=== PATIENT | male | born 1975 | race Caucasian/White ===

== ENCOUNTER 2019-09-04 22:22 | Observation (INO) | payer OTHER ==
[2019-09-04] MEDS ORDERED: SODIUM CHLORIDE 0.9% 500 ML 500 ML IV STA (23:43)
[2019-09-04] MEDS ORDERED: SODIUM CHLORIDE 0.9% 1,000 ML IV STA ×2 (23:43)
[2019-09-04] MEDS ORDERED: ONDANSETRON 4 MG/2 ML VIAL IVP STA (23:43)
[2019-09-04] MEDS ORDERED: KETOROLAC 30 MG/ML 1 ML VIAL IVP STA (23:43)
[2019-09-04] MEDS ORDERED: MORPHINE SULFATE 4 MG/ML SYRINGE IV STA (23:43)
[2019-09-04] MEDS ORDERED: ONDANSETRON 4 MG/2 ML VIAL IVP PRN (23:45)
[2019-09-04] MEDS ORDERED: MORPHINE SULFATE 4 MG/ML SYRINGE IVP PRN (23:45)
--- NOTE | 2019-09-04 23:45 | ED ---
Abdominal Pain HPI - General Chief Complaint: Abdominal Pain Stated Complaint: Abd Pain Time Seen by Provider: 09/04/19 22:51 Source: patient, RN notes reviewed, old records reviewed Mode of arrival: ambulatory Limitations: no limitations - History of Present Illness Initial Comments: This is a 44-year-old male who is accepted in transfer from an outpatient facility for pain control diagnosis of kidney stones. Patient's pain remains out of control nausea no vomiting. Denying any fevers or dysuria history of kidney stones and this feels her prior kidney stone MD Complaint: abdominal pain, flank pain -: days(s) Location: LLQ, L flank Radiation: suprapubic, L flank Severity: severe Severity scale (1-10): 8 Quality: aching Improves With: nothing Worsens With: nothing Associated Symptoms: nausea - Related Data Home Medications Medication Instructions Recorded Confirmed Omeprazole Magnesium [PriLOSEC OTC] 20 mg PO QAM 09/05/19 09/06/19 Previous Rx's Medication Instructions Recorded HYDROcodone/APAP 10-325MG [[place] 1 tab PO Q6HR PRN 3 Days #12 tab 09/05/19 10-325] Tamsulosin [Flomax] 0.4 mg PO DAILY #30 cap 09/05/19 Allergies Allergy/AdvReac Type Severity Reaction Status Date / Time No Known Allergies Allergy Verified 09/05/19 07:31 Review of Systems ROS Statement: Those systems with pertinent positive or pertinent negative responses have been documented in the HPI. ROS Other: All systems not noted in ROS Statement are negative. Past Medical History Additional Past Medical History / Comment(s): kidney stones History of Any Multi-Drug Resistant Organisms: None Reported Past Surgical History: Orthopedic Surgery Additional Past Surgical History / Comment(s): neck surgery Past Psychological History: No Psychological Hx Reported Smoking Status: Current every day smoker Past Alcohol Use History: None Reported Past Drug Use History: Marijuana General Exam Limitations: no limitations General appearance: alert, in no apparent distress Head exam: Present: atraumatic, normocephalic, normal inspection Eye exam: Present: normal appearance, PERRL, EOMI. Absent: scleral icterus, conjunctival injection, periorbital swelling ENT exam: Present: normal exam, mucous membranes moist Neck exam: Present: normal inspection. Absent: tenderness, meningismus, lymphadenopathy Respiratory exam: Present: normal lung sounds bilaterally. Absent: respiratory distress, wheezes, rales, rhonchi, stridor Cardiovascular Exam: Present: regular rate, normal rhythm, normal heart sounds. Absent: systolic murmur, diastolic murmur, rubs, gallop, clicks GI/Abdominal exam: Present: soft, normal bowel sounds. Absent: distended, tenderness, guarding, rebound, rigid Extremities exam: Present: normal inspection, full ROM, normal capillary refill. Absent: tenderness, pedal edema, joint swelling, calf tenderness Back exam: Present: normal inspection Neurological exam: Present: alert, oriented X3, CN II-XII intact Psychiatric exam: Present: normal affect, normal mood Skin exam: Present: warm, dry, intact, normal color. Absent: rash Course Vital Signs 09/04/19 09/05/19 09/05/19 22:47 06:00 07:53 Temperature 98.6 F 98.5 F Pulse Rate 68 77 Pulse Rate [ 61 Right] Respiratory 20 16 16 Rate Blood Pressure 131/81 104/65 Blood Pressure 105/87 [Right Arm] O2 Sat by Pulse 98 98 97 Oximetry 09/05/19 08:00 Temperature Pulse Rate Pulse Rate [ Right] Respiratory 18 Rate Blood Pressure Blood Pressure [Right Arm] O2 Sat by Pulse Oximetry - Reevaluation(s) Reevaluation #1: 09/04/19 23:44 Medical record is reviewed Reevaluation #2: 09/04/19 23:44 Patient's pain is adequately controlled - Consultations Consultation #1: Spoke with spoke with Dr. Taran herbert for admission Medical Decision Making - Medical Decision Making 44 male be admitted for evaluation regarding kidney stone intractable pain from kidney stones - Lab Data Result diagrams: 09/05/19 00:10 09/05/19 00:10 Disposition Clinical Impression: Abdominal pain, Intractable abdominal pain, Left ureteral stone, Hydronephrosis with renal and ureteral calculous obstruction, Ureteral calculi, Intractable pain Disposition: ADMITTED IP TO THIS [facility] Condition: Stable Is patient prescribed a controlled substance at d/c from ED?: No
[2019-09-05] MEDS ORDERED: HYDROmorphone 1 MG/ML 1 ML SYRINGE IVP STA (00:01)
[2019-09-05 00:43] LABS: Basophils % (A) 0 %; Eosinophils # (A) 0.1 k/uL (0-0.7); Eosinophils % (A) 0 %; HGB 14.5 gm/dL (13.0-17.5); Lymphocytes # (A) 1.2 k/uL (1.0-4.8); Lymphocytes % (A) 8 %; MCH 30.3 pg (25.0-35.0); MCHC 32.9 g/dL (31.0-37.0); MCV 92.1 fL (80.0-100.0); Mean Platelet Volume 6.7; Monocytes # (A) 1.2 k/uL (0-1.0); Monocytes % (A) 8 %; Neutrophils # (A) 12.4 k/uL (1.3-7.7); Neutrophils % (A) 83 %; Platelet Count 266 k/uL (150-450); RBC 4.78 m/uL (4.30-5.90); RDW 11.7 % (11.5-15.5)
[2019-09-05 00:44] LABS: ALT 12 U/L (4-49); AST 20 U/L (17-59); African American GFR (CKD) 84 (>60 ml/min/1.73 sqM); Albumin 3.7 g/dL (3.5-5.0); Alkaline Phosphatase 73 U/L (38-126); Amylase <30 U/L (30-110); Anion Gap 8 mmol/L; Blood Urea Nitrogen 18 mg/dL (9-20); Calcium 8.5 mg/dL (8.4-10.2); Carbon Dioxide 24 mmol/L (22-30); Chloride 103 mmol/L (98-107); Glucose 117 mg/dL (74-99); Non-African American GFR(CKD) 72 (>60 ml/min/1.73 sqM); Potassium 4.7 mmol/L (3.5-5.1); Sodium 135 mmol/L (137-145); Total Bilirubin 0.7 mg/dL (0.2-1.3)
[2019-09-05 01:47] LABS: Appearance,Urine Clear (Clear); Color,Urine Yellow; Glucose,Urine (UA) Negative (Negative); Protein,Urine Negative (Negative)
[2019-09-05 01:48] LABS: Bilirubin,Urine Negative (Negative); Blood,Urine Moderate (Negative); Ketones,Urine Negative (Negative); Leukocyte Esterase,Urine Negative (Negative); Nitrite,Urine Negative (Negative); Urobilinogen,Urine <2.0 mg/dL (<2.0)
--- NOTE | 2019-09-05 01:49 | P.HPIM ---
History of Present Illness H&P Date: 09/05/19 Chief Complaint: Left flank pain nausea vomiting The patient is a 44-year-old male with a past medical history of GERD and recurrent kidney stones who presents to the ER after being transferred here from [place] where he had early presented today via private vehicle with chief complaint of severe episodic intermittent sharp left flank pain with radiation into his left upper abdomen and groin that began late Monday evening. Patient reports associated episodes of nausea and nonbloody bilious emesis, patient has had diminished appetite and inability to keep solids down, he does report being able to keep fluids down, he reports subjective fevers chills or night sweats. He denies any chest pain, denies shortness of breath. The patient reports P receiving seen by Dr. Dela Cruz in [place] and has had surgical removal of his kidney stones previously. Review of records indicates that workup in [place] included a CT abdomen and pelvis that showed a 2-3 mm renal calculi and left ureteral vesicular junction with mild upstream hydronephrosis with urothelial thickening and enhancement with extensive surrounding perinephric periureteral edema and soft tissue stranding concerning for superimposed infarction. On CBC abnormal labs included a white count of 16.8 platelets of 360 with a left shift on his CMP was noted to have a creatinine of 1.4 and a total bili of 1.1. The patient was given boluses of normal saline, started on supportive therapy with Dilaudid and Zofran and transferred here to the [facility] for urology consultation. Review of Systems Pertinent positives per HPI all other review of systems otherwise negative Past Medical History Additional Past Medical History / Comment(s): kidney stones History of Any Multi-Drug Resistant Organisms: None Reported Past Surgical History: Orthopedic Surgery Additional Past Surgical History / Comment(s): neck surgery Past Psychological History: No Psychological Hx Reported Smoking Status: Current every day smoker Past Alcohol Use History: None Reported Past Drug Use History: Marijuana Medications and Allergies Allergies Allergy/AdvReac Type Severity Reaction Status Date / Time No Known Allergies Allergy Verified 09/04/19 22:51 Physical Exam Vitals: Vital Signs Temp Pulse Resp BP Pulse Ox 09/04/19 22:47 98.6 F 68 20 131/81 98 Intake and Output 09/04/19 09/04/19 09/05/19 14:59 22:59 06:59 Other: Weight 83.461 kg Constitutional: No acute distress, conversant, pleasant Eyes: Anicteric sclerae, moist conjunctiva, no lid-lag, PERRLA ENMT: NC/AT,Oropharynx clear, no erythema, exudates Neck:Supple, FROM, no masses, or JVD, No carotid bruits; No thyromegaly Lungs: Clear to auscultation, Clear to percussion, Normal respiratory effort, no accessory muscle use Cardiovascular: Heart regular in rate and rhythm, No murmurs, gallops, or rubs no peripheral edema Abdominal: Soft Nontender, nom distended, no guarding, no rebound or rigidity, Normoactive bowel sound, L CVA tenderness Skin: Normal temperature, tone, texture, turgor, No induration No subcutaneous nodules, No rash, lesions, No ulcers Extremities:No digital cyanosis No clubbing, Pedal pulses intact and symmetrica l Radial pulses intact and symmetrical Normal gait and station, No calf tenderness Psychiatric: Alert and oriented to person, place and time, Appropriate affect Intact judgement Neuro: Muscles Strength 5/5 in all 4 extremities, Sensation to light touch grossly present throughout, Cranial nerves II-XII grossly intact. No focal sensory deficits Results CBC & Chem 7: 09/05/19 00:10 09/05/19 00:10 Assessment and Plan Assessment: Sepsis Pyelonephritis Ureterolithiasis with hydronephrosis Acute kidney injury thrombocytosis GERD Intractable nausea and vomiting Plan: The patient is admitted anticipated greater than 2 midnight stay with sepsis to acute pyelonephritis complicated by a obstructing ureterovesicle stone with imaging evidence of pyelonephritis hydronephrosis and possible infarct. The patient is covered with empiric IV antibiotics with Rocephin, urine and blood cu ltures are ordered, continue rehydration with IV fluids, continue supportive therapy, antiemetics, IV narcotics. Lopressor consultation to urology and nephrology. Prophylaxis with SCDs heparin and PPI therapy. Continue to follow the patient's clinical course CODE STATUS: Full code Anticipated discharge home Discussed plan of care with: Patient and his Greater than 60 minutes was spent in the care of this complex patient
[2019-09-05 01:57] LABS: Mucus,Urine Rare /hpf; RBC,Urine 2 /hpf (0-5); WBC,Urine 1 /hpf (0-5)
--- NOTE | 2019-09-05 02:05 | XR ---
EXAMINATION TYPE: XR KUB DATE OF EXAM: 09/05/2019 COMPARISON: NONE HISTORY: Abdominal pain TECHNIQUE: 2 views upright FINDINGS: There is contrast in the dilated left upper collecting system down to the distal left urete r. There is no hydronephrosis on the right side. Urinary bladder is almost empty and is containing co ntrast. There is no sign of intestinal obstruction or pneumoperitoneum. Fecal pattern is normal. IMPRESSION: Obstruction of the left upper collecting system by possible small stone at the left urete ral vesicle junction. No change compared to CT scan yesterday.
[2019-09-05] MEDS: HYDROmorphone 1 MG/ML 1 ML SYRINGE IVP PRN ×2 (02:07→06:07)
[2019-09-05 07:54] VITALS: BP 105/87; PULSE 61; TEMP 98.5
[2019-09-05] MEDS ORDERED: HEPARIN SODIUM,PORCINE 5,000 UNIT/ML 1 ML VIAL SQ SCH (08:00)
[2019-09-05] MEDS ORDERED: TAMSULOSIN 0.4 MG CAP.ER.24H PO SCH (08:30)
--- NOTE | 2019-09-05 08:38 | P.GSCN ---
History of Present Illness Consult date: 09/05/19 Reason for Consult: Left hydronephrosis secondary to distal left ureteral calculus History of present illness: The patient is a 44-year-old male with a history of calcium urolithiasis who was transferred from the [facility] emergency room late last night for evaluation of severe left flank pain secondary to a distal left ureteral calculus. Patient says that his pain began on 09/07 and was located in the left lower quadrant. It was associated with nausea, vomiting and anorexia. His pain persisted and worsened to the point where he went to the [facility] emergency room yesterday for evaluation. He was noted to have a white blood count of 16,800. BUN/creatinine were 19/1.4. Urinalysis showed less than 2 white cells, 12-15 red cells and was negative for nitrite. Computed tomography scan of the abdomen and pelvis showed left hydroureteronephrosis secondary to what appeared to be a 2-3 mm calculus in the distal left ureter near the bladder. The patient continued to have severe pain and was transferred to this facility for further evaluation. He has remained afebrile. His white blood count at the time of arrival was 15,000. BU N/creatinine were 18/1.2. A KUB showed retained contrast in the left ureter down to what appeared to be a 2-3 mm calculus near the left side of the bladder. The patient said that he was in pain at the time of the KUB but shortly after that his pain resolved. He is had no pain since then. He no longer has any nausea. Unfortunately he has not been straining his urine. Patient says that he has had fibrocystic stones over the last 20 years. The only surgical intervention was ureteroscopy with lithotripsy for 2 left ureteral calculi in 03/2019. He says that he once passed a 5 mm calculus. He has no history of urine of tract infection. Review of Systems - Constitutional Reports anorexia, Denies chills, Denies fever - Cardiovascular Denies shortness of breath - Respiratory Denies cough, Denies wheezing - Gastrointestinal Reports as per HPI, Reports heartburn - Genitourinary Reports as per HPI Past Medical History Past Medical History: GERD/Reflux Additional Past Medical History / Comment(s): kidney stones History of Any Multi-Drug Resistant Organisms: None Reported Past Surgical History: Orthopedic Surgery Additional Past Surgical History / Comment(s): Cervical spine fusion, amputation of right index finger and surgery on left foot. EGD Past Psychological History: No Psychological Hx Reported Smoking Status: Current every day smoker Past Alcohol Use History: None Reported Past Drug Use History: Marijuana Medications and Allergies Home Medications Medication Instructions Recorded Confirmed Type Omeprazole Magnesium [PriLOSEC OTC] 20 mg PO QAM 09/05/19 09/05/19 History Allergies Allergy/AdvReac Type Severity Reaction Status Date / Time No Known Allergies Allergy Verified 09/05/19 07:31 Surgical - Exam Vital Signs Temp Pulse Resp BP Pulse Ox 98.6 F 68 20 131/81 98 09/04/19 22:47 09/04/19 22:47 09/04/19 22:47 09/04/19 22:47 09/04/19 22:47 - General well developed, well nourished, no distress - ENT no hearing loss - Neck no masses, no lymphadectomy - Respiratory normal respiratory effort - Abdomen Abdomen: soft, non tender Hernia: none - Genitourinary normal penis with no external lesions, testicles non-tender Results - Labs 09/05/19 00:10 09/05/19 00:10 Abnormal Lab Results - Last 24 Hours (Table) 09/05/19 09/05/19 09/05/19 Range/Units 00:10 00:10 00:13 WBC 15.0 H (3.8-10.6) k/uL Neutrophils # 12.4 H (1.3-7.7) k/uL Monocytes # 1.2 H (0-1.0) k/uL Sodium 135 L (137-145) mmol/L Glucose 117 H (74-99) mg/dL Total Protein 6.0 L (6.3-8.2) g/dL Amylase <30 L (30-110) U/L Urine Mucus Rare H (None) /hpf Diabetes panel 09/05/19 Range/Units 00:10 Sodium 135 L (137-145) mmol/L Potassium 4.7 (3.5-5.1) mmol/L Chloride 103 (98-107) mmol/L Carbon Dioxide 24 (22-30) mmol/L BUN 18 (9-20) mg/dL Creatinine 1.20 (0.66-1.25) mg/dL Glucose 117 H (74-99) mg/dL Calcium 8.5 (8.4-10.2) mg/dL AST 20 (17-59) U/L ALT 12 (4-49) U/L Alkaline Phosphatase 73 (38-126) U/L Total Protein 6.0 L (6.3-8.2) g/dL Albumin 3.7 (3.5-5.0) g/dL Calcium panel 09/05/19 Range/Units 00:10 Calcium 8.5 (8.4-10.2) mg/dL Albumin 3.7 (3.5-5.0) g/dL Pituitary panel 09/05/19 Range/Units 00:10 Sodium 135 L (137-145) mmol/L Potassium 4.7 (3.5-5.1) mmol/L Chloride 103 (98-107) mmol/L Carbon Dioxide 24 (22-30) mmol/L BUN 18 (9-20) mg/dL Creatinine 1.20 (0.66-1.25) mg/dL Glucose 117 H (74-99) mg/dL Calcium 8.5 (8.4-10.2) mg/dL Adrenal panel 09/05/19 Range/Units 00:10 Sodium 135 L (137-145) mmol/L Potassium 4.7 (3.5-5.1) mmol/L Chloride 103 (98-107) mmol/L Carbon Dioxide 24 (22-30) mmol/L BUN 18 (9-20) mg/dL Creatinine 1.20 (0.66-1.25) mg/dL Glucose 117 H (74-99) mg/dL Calcium 8.5 (8.4-10.2) mg/dL Total Bilirubin 0.7 (0.2-1.3) mg/dL AST 20 (17-59) U/L ALT 12 (4-49) U/L Alkaline Phosphatase 73 (38-126) U/L Total Protein 6.0 L (6.3-8.2) g/dL Albumin 3.7 (3.5-5.0) g/dL Assessment and Plan (1) Hydronephrosis with renal and ureteral calculous obstruction Narrative/Plan: I personally reviewed the patient's computed tomography scan which was performed in [place] as well as his KUB from earlier this morning. He appears to have had a 2-3 mm calculus in the left distal ureter with secondary hydronephrosis. This was most likely the source of his pain. He has no evidence of sepsis and his elevated white blood count was probably on the basis of the pain. He's had no pain at all for the last 7-8 hours and it is possible that he has passed the calculus into his bladder. Unfortunately he has not been straining his urine. If his pain does not return he could be discharged and followed up as an outpatient. At least at this time there is no need for any surgical intervention or antibiotics. Current Visit: Yes Status: Acute Code(s): N13.2 - HYDRONEPHROSIS WITH RENAL AND URETERAL CALCULOUS OBSTRUCTION SNOMED Code(s): 061995906
[2019-09-05] MEDS ORDERED: PANTOPRAZOLE 40 MG/10 ML VIAL IVP SCH (09:00)
[2019-09-05] MEDS ORDERED: DOCUSATE 100 MG CAP PO SCH (09:00)
--- NOTE | 2019-09-05 10:18 | P.DS ---
Providers Date of admission: 09/04/19 23:46 Expected date of discharge: 09/05/19 Attending physician: Celso Ling MD Consults: 09/05/19 00:40 Consult Physician Routine Consulting Provider: Jose Antonio Blue Consult Reason/Comments: Urolithiasis, hydronephrosis Do you want consulting provider notified?: Yes, Notify in am 09/05/19 00:44 Consult Physician Routine Consulting Provider: Chetan Jackson Consult Reason/Comments: SCOTT Do you want consulting provider notified?: Yes, Notify in am Primary care physician: [facility] Course: The patient is a 44-year-old male with a past medical history of GERD and recurrent kidney stones who presents to the ER after being transferred here from [place] where he had early presented today via private vehicle with chief complaint of severe episodic intermittent sharp left flank pain with radiation into his left upper abdomen and groin that began late Monday evening. Patient reports associated episodes of nausea and nonbloody bilious emesis, patient has had diminished appetite and inability to keep solids down, he does report being able to keep fluids down, he reports subjective fevers chills or night sweats. He denies any chest pain, denies shortness of breath. The patient reports P receiving seen by Dr. Dela Cruz in [place] and has had surgical removal of his kidney stones previously. Review of records indicates that workup in [place] included a CT abdomen and pelvis that showed a 2-3 mm renal calculi and left ureteral vesicular junction with mild upstream hydronephrosis with urothelial thickening and enhancement with extensive surrounding perinephric periureteral edema and soft tissue stranding concerning for superimposed infarction. On CBC abnormal labs included a white count of 16.8 platelets of 360 with a left shift on his CMP was noted to have a creatinine of 1.4 and a total bili of 1.1. The patient was given boluses of normal saline, started on supportive therapy with Dilaudid and Zofran and transferred here to the [facility] for urology consultation. Patient reported complete resolution of his pain overnight. He was initially admitted for sepsis with acute pyelonephritis complicated by an obstructing ureterovesical stone with hydronephrosis. Patient was started on Rocephin. Urine and blood cultures are obtained. He was hydrated with IV fluids. Urology was consulted and evaluated the patient. Urology recommended outpatient follow- up and to discontinue antibiotics as this was not likely infectious. Patient was seen and examined. No acute events overnight. Patient reports complete resolution of his pain. He denies any chest pain, shortness breath or palpitations. No abdominal pain. No fever or chills. Wanting to go home. General: [non toxic], [no distress], [appears at stated age] Derm: [warm], [dry] Abdominal: [soft], [ nontender to palpation], [no guarding], [no appreciable organomegaly] Psych: [Alert], [oriented], [appropriate affect] Ureterolithiasis with hydronephrosis Leukocytosis GERD Nausea and vomiting Urology has evaluated the patient and recommends that there is no evidence of sepsis and elevated white count is likely reactive from pain. His pain is completely resolved and urology has cleared the patient for discharge. We will discontinue antibiotics. His nausea and vomiting has resolved. Patient will be discharged with close follow-up with PCP within 3 days. He is to follow-up with urology within 1 week. 3 day supply of [place] prescribed on discharge. This complex discharge took about 35 minutes to complete. Pertinent Studies: KUB Patient Condition at Discharge: Stable Plan - Discharge Summary New Discharge Prescriptions: New HYDROcodone/APAP 10-325MG [[place] 10-325] 1 tab PO Q6HR PRN 3 Days #12 tab PRN Reason: Pain Continue Omeprazole Magnesium [PriLOSEC OTC] 20 mg PO QAM Discharge Medication List HYDROcodone/APAP 10-325MG [[place] 10-325] 1 tab PO Q6HR PRN 3 Days #12 tab 09/05/19 [Rx] Omeprazole Magnesium [PriLOSEC OTC] 20 mg PO QAM 09/05/19 [History] Follow up Appointment(s)/Referral(s): Francisco Lemons DO [Primary Care Provider] - 1-2 days Jame Clark MD [STAFF PHYSICIAN] - 1 Week Activity/Diet/Wound Care/Special Instructions: Diet: Regular Follow-up PCP within 3 days. Follow-up urology within 1 week. Take all medications as advised. Discharge Disposition: HOME SELF-CARE
[2019-09-05 11:00] VITALS: RESP 18
--- NOTE | 2019-09-05 21:57 | CONS ---
CONSULTATION DATE OF SERVICE: 09/05/2019 REASON FOR CONSULT: Nephrolithiasis. HISTORY OF PRESENT ILLNESS: The patient is a 44-year-old male with chronic history of kidney stones with recent increase in the recurrence of renal colic. The patient was admitted to the hospital with left flank pain. He initially presented to [facility] from where hew as transferred down to [facility]. He has been evaluated by Urology. The patient also was found to have left hydronephrosis. He denied having actually passed any kidney stones on this episode. UA did not show any evidence of infection, hematuria, or proteinuria. The patient will follow up with Urology as an outpatient. He denies having had any 24-hour urine checked for stone profile. PAST MEDICAL HISTORY: Nephrolithiasis, gastroesophageal reflux disease. PAST SURGICAL HISTORY: Previous urological surgery, cervical spine fusion, surgery on right index finger injury. SOCIAL HISTORY: Positive for smoking. No illicit drug abuse or alcohol abuse. HOME MEDICATIONS: Include omeprazole. ALLERGIES: NONE. PHYSICAL EXAMINATION: On examination, the patient is comfortable, awake, alert, and oriented x3, not in any acute distress. Blood pressure is 105/87, heart rate 61 per minute. The patient is afebrile. EXAMINATION OF THE HEART: S1 and S2. EXAMINATION OF THE LUNGS: Bilateral breath sounds are heard. ABDOMEN: Soft, nontender. Examination of lower extremities shows no evidence of edema. LEGAL RECRUITER exam is grossly intact. LABS: Show sodium 135, potassium 4.7, chloride 103, CO2 is 24, BUN 18, creatinine 1.2. UA shows no evidence of blood, protein, or cells. ASSESSMENT: Nephrolithiasis with left renal stone and left hydronephrosis. PLAN: To follow up as an outpatient with Urology. I have advised the patient that he should have a 24-hour urine for stone profile. He is also advised to maintain adequate hydration and avoid high sodium-containing foods. The patient should avoid any calcium supplements, but do not restrict calcium foods in diet. He does have a little bit of acute kidney injury and renal function will be repeated again as an outpatient. Thank you for this consultation. Will see the patient back for follow up as an outpatient. MMODL / IJN: [id number] /
--- NOTE | 2019-09-09 09:23 | CDI ---
Documentation Clarification Form Date: 09/09/19 From: Di Cordon Phone: If you have a question about this query, please contact Ya Reynaga Powder Mixer at [phone] between 8am and 5pm. Admit Date: 09/04/19 Discharge Date:09/05/19 Patient Name: Kota Pandya Visit Number: [id number] ATTENTION: The Clinical Documentation Specialists (CDI) and [facility] Coding Staff appreciate your assistance in clarifying documentation. Please respond to the clarification below the line at the bottom and electronically sign. The CDI & [facility] Coding staff will review the response and follow-up if needed. Please note: Queries are made part of the Legal Health Record. If you have any questions, please contact the author of this message via ITS. Dear Dr. Ling Acute kidney injury was documented in the H&P and consult note. History/Risk Factors: Hydronephrosis, left ureteral stone Patients baseline BUN/CR/GFR: /. these were only tested once Clinical Indicators: Nausea Treatment: IVF: 2 liters bolus In order to capture the severity of condition, please clarify if the condition signifies: Acute kidney injury Ruled Out Acute renal failure, Please specify etiology (if known): Cortical Necrosis Medullary Necrosis Tubular Necrosis Acute kidney injury Other, please specify Unable to determine Unable to determine MTDD
== END 2019-09-05 10:22 | disposition home or self-care (01) ==
LOC: EC 22:22 → INTOOBSV 23:46 → 5NMEDONC 23:46 → UNDOADMIN 23:46 → UNDODISIN 09-05 10:22
PROVIDERS: ADMIT Family Medicine; ATTEND Family Medicine
DX: N13.2 Hydronephrosis with renal and ureteral calculous obstruction (principal); Z87.442 Personal history of urinary calculi; K21.9 Gastro-esophageal reflux disease without esophagitis; F17.200 Nicotine dependence, unspecified, uncomplicated; Z98.1 Arthrodesis status; D72.829 Elevated white blood cell count, unspecified; Z89.021 Acquired absence of right finger(s); Z98.890 Other specified postprocedural states; Z79.899 Other long term (current) drug therapy
CPT/HCPCS: 96376; 96361; 96365; 96375; 99285; 80053; 82150; 83605; 83690; 85025; 81001; 87040; 74018; G0378; J2405; J0696; J1885; J1170

== ENCOUNTER 2019-09-05 18:22 | Inpatient (IN) | payer OTHER ==
[2019-09-05] MEDS ORDERED: SODIUM CHLORIDE 0.9% 1,000 ML IV STA (19:19)
[2019-09-05] MEDS ORDERED: HYDROmorphone 1 MG/ML 1 ML SYRINGE IVP STA (19:19)
[2019-09-05] MEDS ORDERED: ONDANSETRON 4 MG/2 ML VIAL IVP STA (19:19)
--- NOTE | 2019-09-05 19:46 | ED ---
General Adult HPI - General Source: patient, RN notes reviewed, old records reviewed Mode of arrival: wheelchair Limitations: no limitations <Jhonathan Wagner - Last Filed: 09/05/19 22:15> <Fela Avina - Last Filed: 09/09/19 05:36> - General Chief complaint: Abdominal Pain Stated complaint: Kidney stone Time Seen by Provider: 09/05/19 19:14 - History of Present Illness Initial comments: 44-year-old male patient passed no history of renal calculi presents to ED for chief complaint of left patient was admitted to this hospital yesterday for intractable pain secondary to kidney stone. Reports that his pain was controlled however after leaving the hospital he began to experience the same left flank pain as he had prior. Reports nausea without emesis. Also reports that he has had the hiccups all day and that is causing some mild anterior chest pain while hiccuping. Denies any prior cardiac history. Or active chest pain at this time. Denies any other complaints. Systemic: Pt denies fatigue, fever/chills, rash. Pt denies weakness, night sweats, weight loss. Neuro: Pt denies headache, visual disturbances, syncope or pre-syncope. HEENT: Pt denies ocular discharge or irritation, otalgia, rhinorrhea, pharyngitis or notable lymphadenopathy. Cardiopulmonary: Pt denies chest pain, SOB, heart palpitations, dyspnea on exertion. Abdominal/GI: Pt denies abdominal pain, n/v/d. : Pt denies dysuria, burning w/ urination, frequency/urgency. Denies new onset urinary or bowel incontinence. MSK: Pt denies myalgia, loss of strength or function in extremities. Neuro: Pt denies new onset weakness, paresthesias. (Jhonathan Wagner) - Related Data Home Medications Medication Instructions Recorded Confirmed Omeprazole Magnesium [PriLOSEC OTC] 20 mg PO QAM 09/05/19 09/06/19 Previous Rx's Medication Instructions Recorded HYDROcodone/APAP 10-325MG [[place] 1 tab PO Q6HR PRN 3 Days #12 tab 09/05/19 10-325] Tamsulosin [Flomax] 0.4 mg PO DAILY #30 cap 09/05/19 Allergies Allergy/AdvReac Type Severity Reaction Status Date / Time No Known Allergies Allergy Verified 09/05/19 07:31 Review of Systems ROS Other: All systems not noted in ROS Statement are negative. <Jhonathan Wagner - Last Filed: 09/05/19 22:15> ROS Other: All systems not noted in ROS Statement are negative. <Fela Avina - Last Filed: 09/09/19 05:36> ROS Statement: Those systems with pertinent positive or pertinent negative responses have been documented in the HPI. 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 EGD Past Psychological History: No Psychological Hx Reported Smoking Status: Current every day smoker Past Alcohol Use History: None Reported Past Drug Use History: Marijuana <Jhonathan Wagner - Last Filed: 09/05/19 22:15> - Past Family History Father Family Medical History: Myocardial Infarction ([place]) <Fela Avina - Last Filed: 09/09/19 05:36> General Exam Limitations: no limitations <Jhonathan Wagner - Last Filed: 09/05/19 22:15> - General Exam Comments Initial Comments: Constitutional: NAD, AOX3, Pt has pleasant affect. HEENT: NC/AT, trachea midline, neck supple, no lymphadenopathy. Posterior pharynx non erythematous, without exudates. External ears appear normal, without discharge. Mucous membranes moist. Eyes PERRLA, EOM intact. There is no scleral icterus. No pallor noted. Cardiopulmonary: RRR, no murmurs, rubs or gallops, no JVD noted. Lungs CTAB in anterior and posterior figueroa. No peripheral edema. Abdominal exam: Abdomen soft and non-distended. Abdomen non-tender to palpation in all 4 quadrants. Bowel sounds active in LLQ. No hepatosplenomegaly. No ecchymosis Neuro: CN II-XII grossly intact. No nuchal rigidity. No raccon eyes, no shukla sign, no hemotympanum. No cervical spinal tenderness. Left lower flank region mild tender palpation. No skin changes. MSK: No posterior calf tenderness bilaterally, homans sign negative bilaterally. Posterior tibialis and radial pulse +2 bilaterally. Sensation intact in upper and lower extremities. Full active ROM in upper and lower extremities, 5/5 stregnth. (Jhonathan Wagner) Course Vital Signs 09/05/19 09/05/19 09/05/19 18:53 21:18 22:53 Temperature 97.6 F 98.0 F Pulse Rate 71 82 75 Respiratory 18 18 18 Rate Blood Pressure 155/91 132/80 134/75 O2 Sat by Pulse 100 100 97 Oximetry Medical Decision Making - Lab Data Result diagrams: 09/05/19 19:54 09/05/19 19:54 - EKG Data -: EKG Interpreted by Me (and Dr. Avina ) <Jhonathan Wagner - Last Filed: 09/05/19 22:15> - Lab Data Result diagrams: 09/06/19 07:52 09/06/19 07:52 <Fela Avina - Last Filed: 09/09/19 05:36> - Medical Decision Making 44-year-old male patient passed no history of renal calculi presents to ED for chief complaint of left patient was admitted to this hospital yesterday for intractable pain secondary to kidney stone. Reports that his pain was controlled however after leaving the hospital he began to experience the same left flank pain as he had prior. Reports nausea without emesis. Also reports that he has had the hiccups all day and that is causing some mild anterior chest pain while hiccuping. Denies any prior cardiac history. Or active chest pain at this time. Denies any other complaints. Patient vital signs stable, afebrile. Physical exam is her left lower flank region mildly tender to pa lpation. Laboratory investigations reveal leukocytosis of 13.7. Creatinine of 1.29. Troponin is negative. UA displayed +2 ketones, small amount of blood. EKG is nonischemic. Renal ultrasound displayed mild left-sided hydronephrosis. Chest x-ray displayed no acute process. KUB displayed for 3 mm calcification likely ureteral calculi distal left ureter. Patient pain is intractable emergency department. Case was discussed with Dr. Avina who discussed case with Dr. Blue who will admit patient and plan on surgery tomorrow. (Jhonathan Wagner) I was available for consultation in the emergency department. The history and physical exam were done by the midlevel provider. I was consulted for this patients care. I reviewed the case with the midlevel provider and based on their presentation of the patient, I agree with the assessment, medical decision making and plan of care as documented. I evaluated the patient myself. He presents to the emergency room with intractable flank pain similar to yesterday. We are unable to get his pain under control. I called and discussed the case with Dr. Blue who did accept admission for the patient. He requests that we make him nothing by mouth for possible procedure tomorrow. Patient remained in stable condition and was transported to the floor Chart was dictated using [employer] dictation software. Attempts were made to correct any dictation errors however some typographical errors may persist. ( Fela Avina) - Lab Data Lab Results 09/05/19 09/05/19 09/05/19 Range/Units 19:32 19:54 19:54 WBC 13.7 H (3.8-10.6) k/uL RBC 4.44 (4.30-5.90) m/uL Hgb 13.8 (13.0-17.5) gm/dL Hct 40.8 (39.0-53.0) % MCV 92.0 (80.0-100.0) fL MCH 31.1 (25.0-35.0) pg MCHC 33.8 (31.0-37.0) g/dL RDW 11.7 (11.5-15.5) % Plt Count 277 (150-450) k/uL Neutrophils % 81 % Lymphocytes % 11 % Monocytes % 6 % Eosinophils % 0 % Basophils % 0 % Neutrophils # 11.1 H (1.3-7.7) k/uL Lymphocytes # 1.5 (1.0-4.8) k/uL Monocytes # 0.8 (0-1.0) k/uL Eosinophils # 0.0 (0-0.7) k/uL Basophils # 0.0 (0-0.2) k/uL Sodium 133 L (137-145) mmol/L Potassium 4.2 (3.5-5.1) mmol/L Chloride 103 (98-107) mmol/L Carbon Dioxide 22 (22-30) mmol/L Anion Gap 8 mmol/L BUN 19 (9-20) mg/dL Creatinine 1.29 H (0.66-1.25) mg/dL Est GFR (CKD-EPI)AfAm 77 (>60 ml/min/1.73 sqM) Est GFR (CKD-EPI)NonAf 66 (>60 ml/min/1.73 sqM) Glucose 90 (74-99) mg/dL Plasma Lactic Acid Dick (0.7-2.0) mmol/L Calcium 8.7 (8.4-10.2) mg/dL Total Bilirubin 1.0 (0.2-1.3) mg/dL AST 28 (17-59) U/L ALT 15 (4-49) U/L Alkaline Phosphatase 84 (38-126) U/L Troponin I (0.000-0.034) ng/mL Total Protein 6.2 L (6.3-8.2) g/dL Albumin 3.7 (3.5-5.0) g/dL Lipase 16 L (23-300) U/L Urine Color Yellow Urine Appearance Clear (Clear) Urine pH 5.5 (5.0-8.0) Ur Specific [place] 1.023 (1.001-1.035) Urine Protein Negative (Negative) Urine Glucose (UA) Negative (Negative) Urine Ketones 2+ H (Negative) Urine Blood Small H (Negative) Urine Nitrite Negative (Negative) Urine Bilirubin Negative (Negative) Urine Urobilinogen <2.0 (<2.0) mg/dL Ur Leukocyte Esterase Negative (Negative) Urine RBC 3 (0-5) /hpf Urine WBC 1 (0-5) /hpf Ur Squamous Epith Cells <1 (0-4) /hpf Urine Mucus Occasional H (None) /hpf 09/05/19 09/05/19 Range/Units 19:54 19:54 WBC (3.8-10.6) k/uL RBC (4.30-5.90) m/uL Hgb (13.0-17.5) gm/dL Hct (39.0-53.0) % MCV (80.0-100.0) fL MCH (25.0-35.0) pg MCHC (31.0-37.0) g/dL RDW (11.5-15.5) % Plt Count (150-450) k/uL Neutrophils % % Lymphocytes % % Monocytes % % Eosinophils % % Basophils % % Neutrophils # (1.3-7.7) k/uL Lymphocytes # (1.0-4.8) k/uL Monocytes # (0-1.0) k/uL Eosinophils # (0-0.7) k/uL Basophils # (0-0.2) k/uL Sodium (137-145) mmol/L Potassium (3.5-5.1) mmol/L Chloride (98-107) mmol/L Carbon Dioxide (22-30) mmol/L Anion Gap mmol/L BUN (9-20) mg/dL Creatinine (0.66-1.25) mg/dL Est GFR (CKD-EPI)AfAm (>60 ml/min/1.73 sqM) Est GFR (CKD-EPI)NonAf (>60 ml/min/1.73 sqM) Glucose (74-99) mg/dL Plasma Lactic Acid Dick 1.3 (0.7-2.0) mmol/L Calcium (8.4-10.2) mg/dL Total Bilirubin (0.2-1.3) mg/dL AST (17-59) U/L ALT (4-49) U/L Alkaline Phosphatase (38-126) U/L Troponin I <0.012 (0.000-0.034) ng/mL Total Protein (6.3-8.2) g/dL Albumin (3.5-5.0) g/dL Lipase (23-300) U/L Urine Color Urine Appearance (Clear) Urine pH (5.0-8.0) Ur Specific [place] (1.001-1.035) Urine Protein (Negative) Urine Glucose (UA) (Negative) Urine Ketones (Negative) Urine Blood (Negative) Urine Nitrite (Negative) Urine Bilirubin (Negative) Urine Urobilinogen (<2.0) mg/dL Ur Leukocyte Esterase (Negative) Urine RBC (0-5) /hpf Urine WBC (0-5) /hpf Ur Squamous Epith Cells (0-4) /hpf Urine Mucus (None) /hpf - EKG Data EKG Comments: Ventricular rate 64, when necessary for 158, QRS 94, QT/QTC 370/31. Normal since rhythm, normal EKG, no concern for acute ischemia. (Jhonathan Wagner) Disposition Is patient prescribed a controlled substance at d/c from ED?: No <Jhonathan Wagner - Last Filed: 09/05/19 22:15> <Fela Avina - Last Filed: 09/09/19 05:36> Clinical Impression: Ureteral calculi, Intractable pain Disposition: ADMITTED IP TO THIS [facility] Condition: Good
[2019-09-05 19:52] LABS: Appearance,Urine Clear (Clear); Bilirubin,Urine Negative (Negative); Blood,Urine Small (Negative); Color,Urine Yellow; Glucose,Urine (UA) Negative (Negative); Ketones,Urine 2+ (Negative); Leukocyte Esterase,Urine Negative (Negative); Mucus,Urine Occasional /hpf; Nitrite,Urine Negative (Negative); PH, Urine 5.5 (5.0-8.0); Protein,Urine Negative (Negative); RBC,Urine 3 /hpf (0-5); Specific Gravity,Urine 1.023 (1.001-1.035); Squamous Epithelial Cell,Urine <1 /hpf (0-4); Urobilinogen,Urine <2.0 mg/dL (<2.0); WBC,Urine 1 /hpf (0-5)
[2019-09-05 20:17] LABS: Basophils % (A) 0 %; Eosinophils % (A) 0 %; HCT 40.8 % (39.0-53.0); HGB 13.8 gm/dL (13.0-17.5); Lymphocytes # (A) 1.5 k/uL (1.0-4.8); Lymphocytes % (A) 11 %; MCH 31.1 pg (25.0-35.0); MCHC 33.8 g/dL (31.0-37.0); Mean Platelet Volume 6.9; Monocytes # (A) 0.8 k/uL (0-1.0); Monocytes % (A) 6 %; Neutrophils # (A) 11.1 k/uL (1.3-7.7); Neutrophils % (A) 81 %; Platelet Count 277 k/uL (150-450); RBC 4.44 m/uL (4.30-5.90); RDW 11.7 % (11.5-15.5); WBC 13.7 k/uL (3.8-10.6)
[2019-09-05 20:23] LABS: Albumin 3.7 g/dL (3.5-5.0); Calcium 8.7 mg/dL (8.4-10.2); Potassium 4.2 mmol/L (3.5-5.1); Total Protein 6.2 g/dL (6.3-8.2)
[2019-09-05] MEDS ORDERED: SODIUM CHLORIDE 0.9% 500 ML 500 ML IV STA (20:37)
--- NOTE | 2019-09-05 20:42 | US ---
EXAMINATION TYPE: US renals and bladder DATE OF EXAM: 09/05/2019 COMPARISON: XR CLINICAL HISTORY: Left flank pain x 5 days. Hx renal calculi. Hx kidney stone removal. Hematuria. EXAM MEASUREMENTS: Right Kidney: 11.1 x 5.2 x 4.8 cm Left Kidney: 12.3 x 5.7 x 6.2 cm Right Kidney: Limited visibility of lower pole due to a lot of bowel gas. Upper collecting system meet ears to be minimally dilated. Left Kidney: Measures upper limits of normal. Collecting system appears to be dilated. Bladder: Not fully distended. Ureteral Doppler Jets: Unilateral right jet seen multiple times. IMPRESSION: MILD LEFT-SIDED HYDRONEPHROSIS.
--- NOTE | 2019-09-05 21:05 | XR ---
EXAMINATION: XR chest 2V DATE AND TIME: 09/05/2019 8:49 PM CLINICAL INDICATION: PHH; abdominal pain TECHNIQUE: Departmental protocol COMPARISON: None FINDINGS: The lungs are clear. The pleural spaces are negative. The cardiac silhouette is not enlarged. The remainder of the mediastinal silhouette is unremarkable. The skeletal structures and soft tissues are negative for acute findings. IMPRESSION: NO ACUTE PROCESS.
--- NOTE | 2019-09-05 21:12 | XR ---
EXAMINATION TYPE: XR KUB 2 views DATE OF EXAM: 09/05/2019 8:49 PM CLINICAL HISTORY: Pain TECHNIQUE: Single supine KUB image of the abdomen is obtained. COMPARISON: 09/05/2019 1:43 AM FINDINGS: Scattered gas is seen in non-distended small bowel loops. Gas and fecal material is seen in non-distended colon. There is no visceromegaly, pneumoperitoneum, or abnormal calcification appreciated. Left hemipelvic phleboliths noted. There are a total of four calcifications in the left hemipelvis, t he most superomedial of which measures 3 mm and projects over the expected position of the distal lef t ureter; noncontrast CT can further characterize if clinically indicated. The lung bases are clear and the osseous structures are intact. IMPRESSION: 1. No definite acute process. 2. Left hemipelvic calcifications noted.
[2019-09-05] MEDS ORDERED: HYDROmorphone 0.5 MG/0.5 ML SYRINGE IVP STA (21:24)
[2019-09-05] MEDS ORDERED: TAMSULOSIN 0.4 MG CAP.ER.24H PO SCH (22:15)
[2019-09-05] MEDS ORDERED: ONDANSETRON 4 MG/2 ML VIAL IVP PRN (22:16)
[2019-09-05] MEDS ORDERED: NALOXONE 0.4 MG/ML 1 ML VIAL IV PRN (22:16)
[2019-09-05] MEDS: HYDROmorphone 1 MG/ML 1 ML SYRINGE IVP PRN (23:39)
[2019-09-06] MEDS: SODIUM CHLORIDE 0.9% 1,000 ML IV SCH ×2 (01:11→08:41)
[2019-09-06] MEDS: KETOROLAC 30 MG/ML 1 ML VIAL IVP SCH ×4 (01:12→17:22)
[2019-09-06] MEDS ORDERED: TAMSULOSIN 0.4 MG CAP.ER.24H PO SCH (07:00)
[2019-09-06] MEDS: HYDROmorphone 1 MG/ML 1 ML SYRINGE IVP PRN (08:08)
[2019-09-06] MEDS ORDERED: PANTOPRAZOLE 40 MG/10 ML VIAL IVP SCH (09:15)
[2019-09-06 09:28] LABS: Basophils % (A) 0 %; Eosinophils # (A) 0.1 k/uL (0-0.7); Eosinophils % (A) 1 %; HCT 38.8 % (39.0-53.0); HGB 12.9 gm/dL (13.0-17.5); Lymphocytes # (A) 1.1 k/uL (1.0-4.8); Lymphocytes % (A) 9 %; MCHC 33.2 g/dL (31.0-37.0); MCV 93.4 fL (80.0-100.0); Monocytes # (A) 0.9 k/uL (0-1.0); Monocytes % (A) 8 %; Neutrophils # (A) 9.1 k/uL (1.3-7.7); Neutrophils % (A) 80 %; Platelet Count 252 k/uL (150-450); RBC 4.15 m/uL (4.30-5.90); RDW 11.7 % (11.5-15.5); WBC 11.4 k/uL (3.8-10.6)
[2019-09-06 09:31] LABS: Calcium 8.1 mg/dL (8.4-10.2); Potassium 4.3 mmol/L (3.5-5.1)
--- NOTE | 2019-09-06 12:05 | P.GSHP ---
History of Present Illness H&P Date: 09/06/19 Chief Complaint: Pain secondary to distal left ureteral calculus The patient is a 44-year-old male with a history of urolithiasis admitted through the emergency room due to severe left flank pain. He had been seen by me in the emergency room yesterday morning. Computed tomography scan and KUB had shown a 2-3 mm distal left ureteral calculus with moderate hydronephrosis. The patient had been comfortable for over 7 hours and elected to be discharged from the emergency room. He was comfortable until approximately 1:30 yesterday afternoon when his pain returned. He presented to the emergency room yesterday evening and was admitted for treatment of his pain and stone. He continues to have intermittent pain and has not recovered a calculus. The remainder of the history and physical is unchanged from a consultation note dictated by me yesterday. 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 EGD Past Psychological History: No Psychological Hx Reported Smoking Status: Current every day smoker Past Alcohol Use History: None Reported Past Drug Use History: Marijuana - Past Family History Father Family Medical History: Myocardial Infarction ([place]) Medications and Allergies Home Medications Medication Instructions Recorded Confirmed Type HYDROcodone/APAP 10-325MG [[place] 1 tab PO Q6HR PRN 3 Days #12 tab 09/05/19 09/06/19 Rx 10-325] Omeprazole Magnesium [PriLOSEC OTC] 20 mg PO QAM 09/05/19 09/06/19 History Tamsulosin [Flomax] 0.4 mg PO DAILY #30 cap 09/05/19 09/06/19 Rx Allergies Allergy/AdvReac Type Severity Reaction Status Date / Time No Known Allergies Allergy Verified 09/05/19 07:31 Surgical - Exam Vital Signs Temp Pulse Resp BP Pulse Ox 97.6 F 71 18 155/91 100 09/05/19 18:53 09/05/19 18:53 09/05/19 18:53 09/05/19 18:53 09/05/19 18:53 Results - Labs 09/06/19 07:52 09/06/19 07:52 Abnormal Lab Results - Last 24 Hours (Table) 09/05/19 09/05/19 09/05/19 Range/Units 19:32 19:54 19:54 WBC 13.7 H (3.8-10.6) k/uL RBC (4.30-5.90) m/uL Hgb (13.0-17.5) gm/dL Hct (39.0-53.0) % Neutrophils # 11.1 H (1.3-7.7) k/uL Sodium 133 L (137-145) mmol/L Carbon Dioxide (22-30) mmol/L Creatinine 1.29 H (0.66-1.25) mg/dL Calcium (8.4-10.2) mg/dL Total Protein 6.2 L (6.3-8.2) g/dL Lipase 16 L (23-300) U/L Urine Ketones 2+ H (Negative) Urine Blood Small H (Negative) Urine Mucus Occasional H (None) /hpf 09/06/19 09/06/19 Range/Units 07:52 07:52 WBC 11.4 H (3.8-10.6) k/uL RBC 4.15 L (4.30-5.90) m/uL Hgb 12.9 L (13.0-17.5) gm/dL Hct 38.8 L (39.0-53.0) % Neutrophils # 9.1 H (1.3-7.7) k/uL Sodium 134 L (137-145) mmol/L Carbon Dioxide 21 L (22-30) mmol/L Creatinine 1.40 H (0.66-1.25) mg/dL Calcium 8.1 L (8.4-10.2) mg/dL Total Protein (6.3-8.2) g/dL Lipase (23-300) U/L Urine Ketones (Negative) Urine Blood (Negative) Urine Mucus (None) /hpf Diabetes panel 09/05/19 09/06/19 Range/Units 19:54 07:52 Sodium 133 L 134 L (137-145) mmol/L Potassium 4.2 4.3 (3.5-5.1) mmol/L Chloride 103 105 (98-107) mmol/L Carbon Dioxide 22 21 L (22-30) mmol/L BUN 19 19 (9-20) mg/dL Creatinine 1.29 H 1.40 H (0.66-1.25) mg/dL Glucose 90 75 (74-99) mg/dL Calcium 8.7 8.1 L (8.4-10.2) mg/dL AST 28 (17-59) U/L ALT 15 (4-49) U/L Alkaline Phosphatase 84 (38-126) U/L Total Protein 6.2 L (6.3-8.2) g/dL Albumin 3.7 (3.5-5.0) g/dL Calcium panel 09/05/19 09/06/19 Range/Units 19:54 07:52 Calcium 8.7 8.1 L (8.4-10.2) mg/dL Albumin 3.7 (3.5-5.0) g/dL Pituitary panel 09/05/19 09/06/19 Range/Units 19:54 07:52 Sodium 133 L 134 L (137-145) mmol/L Potassium 4.2 4.3 (3.5-5.1) mmol/L Chloride 103 105 (98-107) mmol/L Carbon Dioxide 22 21 L (22-30) mmol/L BUN 19 19 (9-20) mg/dL Creatinine 1.29 H 1.40 H (0.66-1.25) mg/dL Glucose 90 75 (74-99) mg/dL Calcium 8.7 8.1 L (8.4-10.2) mg/dL Adrenal panel 09/05/19 09/06/19 Range/Units 19:54 07:52 Sodium 133 L 134 L (137-145) mmol/L Potassium 4.2 4.3 (3.5-5.1) mmol/L Chloride 103 105 (98-107) mmol/L Carbon Dioxide 22 21 L (22-30) mmol/L BUN 19 19 (9-20) mg/dL Creatinine 1.29 H 1.40 H (0.66-1.25) mg/dL Glucose 90 75 (74-99) mg/dL Calcium 8.7 8.1 L (8.4-10.2) mg/dL Total Bilirubin 1.0 (0.2-1.3) mg/dL AST 28 (17-59) U/L ALT 15 (4-49) U/L Alkaline Phosphatase 84 (38-126) U/L Total Protein 6.2 L (6.3-8.2) g/dL Albumin 3.7 (3.5-5.0) g/dL Assessment and Plan (1) Hydronephrosis with renal and ureteral calculous obstruction Narrative/Plan: The patient continues to have intermittent severe left flank pain secondary to a less than 3 mm distal ureteral calculus. He wishes to proceed with left ureteroscopy with lithotripsy for treatment. He is aware of the operative risks which include anesthesia, bleeding, infection, ureteral injury and the possible need for double-J catheter postop. He has no further questions in regard to the procedure. Current Visit: No Status: Acute Code(s): N13.2 - HYDRONEPHROSIS WITH RENAL AND URETERAL CALCULOUS OBSTRUCTION SNOMED Code(s): 737713260
[2019-09-06] MEDS ORDERED: IV FLUID CONTINUATION 1,000 ML IV ONE (13:59)
[2019-09-06] MEDS ORDERED: fentaNYL (PF) 50 MCG/ML 2 ML AMP ONE (15:27)
[2019-09-06] MEDS ORDERED: PROPOFOL 10 MG/ML 20 ML VIAL IV ONE (15:27)
[2019-09-06] MEDS ORDERED: ceFAZolin 1,000 MG VIAL ONE (15:27)
[2019-09-06] MEDS ORDERED: MEPERIDINE 50 MG/ML SYRINGE ONE (15:27)
[2019-09-06] MEDS ORDERED: LIDOCAINE 1% INJ 10MG/ML (20 ML MDV) ONE (15:27)
[2019-09-06] MEDS ORDERED: ONDANSETRON 4 MG/2 ML VIAL ONE (15:27)
[2019-09-06] MEDS ORDERED: KETOROLAC 30 MG/ML 1 ML VIAL ONE (15:27)
[2019-09-06] MEDS ORDERED: MIDAZOLAM 2 MG/2 ML VIAL ONE (15:27)
[2019-09-06] MEDS ORDERED: DEXAMETHASONE SOD PHOS (MDV) 100 MG/10 ML VIAL ONE (15:27)
[2019-09-06] MEDS ORDERED: IOPAMIDOL-370 50ML BTL MISCELLANE ONE (15:52)
[2019-09-06] MEDS ORDERED: LACTATED RINGERS 1,000 ML IV ONE (16:12)
--- NOTE | 2019-09-06 16:39 | P.DS ---
Providers Date of admission: 09/05/19 22:30 Expected date of discharge: 09/06/19 Attending physician: Jose Antonio Blue Primary care physician: Francisco Lemons - Discharge Diagnosis(es) (1) Hydronephrosis with renal and ureteral calculous obstruction The patient has had intractable left flank pain secondary to a 2-3 mm calculus in the distal left ureter with associated hydronephrosis. He underwent cystoscopy with left ureteroscopy and basket extraction of the calculus under general anesthesia on the afternoon of 09/06. A double-J catheter was left following the procedure due to edema associated with the calculus. The patient was discharged later in the day. He will remove the double-J catheter in 3 days provided that he remains clear. He will be seen back in follow-up in 10 days to review the stone analysis. Current Visit: No Status: Acute Patient Condition at Discharge: Good Plan - Discharge Summary Discharge Rx Participant: No New Discharge Prescriptions: No Action Omeprazole Magnesium [PriLOSEC OTC] 20 mg PO QAM HYDROcodone/APAP 10-325MG [[place] 10-325] 1 tab PO Q6HR PRN 3 Days #12 tab PRN Reason: Pain Tamsulosin [Flomax] 0.4 mg PO DAILY #30 cap Discharge Medication List HYDROcodone/APAP 10-325MG [[place] 10-325] 1 tab PO Q6HR PRN 3 Days #12 tab 09/05/19 [Rx] Omeprazole Magnesium [PriLOSEC OTC] 20 mg PO QAM 09/05/19 [History] Tamsulosin [Flomax] 0.4 mg PO DAILY #30 cap 09/05/19 [Rx] Follow up Appointment(s)/Referral(s): Jose Antonio Blue MD [STAFF PHYSICIAN] - 10 Days Francisco Lemons DO [Primary Care Provider] - As Needed Activity/Diet/Wound Care/Special Instructions: May remove left JJ catheter Monday by pulling on attached string. Discharge Disposition: HOME SELF-CARE
[2019-09-06 16:41] VITALS: TEMP 97.6
--- NOTE | 2019-09-06 16:45 | P.OP ---
Date of Procedure: 09/06/19 Preoperative Diagnosis: Distal left ureteral calculus with hydronephrosis Postoperative Diagnosis: Distal left ureteral calculus with hydronephrosis Procedure(s) Performed: Cystoscopy with left ureteroscopy and basket extraction of ureteral calculus. Placement of left double-J catheter Anesthesia: NOEMIA Surgeon: Jose Antonio Blue Pathology: other (Left ureteral calculus) Condition: stable Disposition: PACU Indications for Procedure: Patient's a 44-year-old male with a history of intermittent severe left flank pain which dates back 5 or 6 days. Computed tomography scan identified a 2-3 millimeter distal left ureteral calculus with secondary hydronephrosis. The patient has been unable to pass the stone spontaneously and has requested surgical removal via ureteroscopy. Description of Procedure: The patient was taken the operating suite where adequate general anesthesia via LMA was instituted. He was placed in the dorsal lithotomy position with his legs suspended on padded Manuel stirrups. Pneumatic compression stockings were applied to the lower legs. The genitalia was prepped with Betadine solution and draped in a sterile fashion. The penile and prostatic urethra was traversed under direct vision using the 19-Bruneian cystoscope sheath and 30 lens. Anterior urethra was unremarkable. Prostatic urethra showed evidence of minimal lateral enlargement consistent with the patient's age. The bladder was examined. Both ureteral orifices were of normal location and configuration. The bladder was free of tumor, foreign body and calculus. The calculus in the left ureter was not clearly visible via fluoroscopy. The distal ureter was opacified using contrast injected through an 8-Bruneian cone tip catheter. There appeared to be a filling defect in the distal ureter consistent with the stone noted on computed tomography scan. A 0.035 Glidewire was then advanced through the left ureteral orifice and up to the mid ureter. The cystoscope was withdrawn. I initially attempted to pass the 8.5-Bruneian semirigid ureteroscope along the Glidewire but this proved impossible the intramural ureter was then dilated to 11-Bruneian using the obturator from a 13-Bruneian ureteral reentry sheath. The ureteroscope was then advanced through the left ureter and into the left distal ureter. The calculus was identified. It was trapped with a 1.9- Bruneian nitinol stone basket and extracted using the ureteroscope. Due to the edema in the distal ureter and the requirement for dilation to 11-Bruneian was elected to place a double-J catheter. The 22-Bruneian cystoscope was backloaded over the Glidewire and introduced into the bladder. A 6-Bruneian by 24 cm double- J catheter was then advanced over the Glidewire and positioned so that the proximal end coiled in the region of the pelvis and the distal and coiled in the bladder. The string was left attached at the distal end of the catheter and the cystoscope was withdrawn along the string to protrude out through the urethral meatus. Patient tolerated procedure well and left the operative room awake and in satisfactory condition. There was no blood loss. Patient will be discharged later today. He'll remove the double-J catheter at home in 3 days provided that he is comfortable.
[2019-09-06 17:07] VITALS: RESP 16
[2019-09-06 17:44] VITALS: BP 121/76; PULSE 58
--- NOTE | 2019-09-08 21:57 | FL ---
EXAMINATION TYPE: FL urography retrograde DATE OF EXAM: 09/06/2019 FLUOROSCOPY Fluoroscopy time of 29 seconds was used during left ureteral stone removal. 1 image/s document/s the procedure.
== END 2019-09-06 18:20 | disposition home or self-care (01) | DRG 661 ==
LOC: EC 18:22 → 6NMEDSUR 22:30
PROVIDERS: ADMIT Urology; ATTEND Urology
PROC: 0TJ98ZZ Inspection of Ureter, Via Natural or Artificial Opening Endoscopic (ICD-10-PCS; 2019-09-06)
PROC: 0TC78ZZ Extirpation of Matter from Left Ureter, Via Natural or Artificial Opening Endoscopic (ICD-10-PCS; principal; 2019-09-06 08:30)
PROC: 0T778DZ Dilation of Left Ureter with Intraluminal Device, Via Natural or Artificial Opening Endoscopic (ICD-10-PCS; 2019-09-06 08:30)
DX: N13.2 Hydronephrosis with renal and ureteral calculous obstruction (principal); D72.829 Elevated white blood cell count, unspecified; F17.210 Nicotine dependence, cigarettes, uncomplicated; Z79.899 Other long term (current) drug therapy; Z82.49 Family history of ischemic heart disease and other diseases of the circulatory system; Z87.442 Personal history of urinary calculi; Z98.1 Arthrodesis status; Z89.021 Acquired absence of right finger(s)
CPT/HCPCS: 36415; 71046; 74018; 74420; 76770; 80048; 80053; 81001; 82365; 83605; 83690; 84484; 85025; 93005

== ENCOUNTER 2022-12-15 09:41 | Emergency (ER) | payer OTHER ==
[2022-12-15] MEDS ORDERED: KETOROLAC 15 MG/ML 1 ML VIAL IM STA (10:30)
--- NOTE | 2022-12-15 10:37 | ED ---
General Adult HPI - General Chief complaint: Extremity Problem,Nontraumatic Stated complaint: Rt arm numbness Time Seen by Provider: 12/15/22 10:09 Source: patient, RN notes reviewed Mode of arrival: ambulatory Limitations: no limitations - History of Present Illness Initial comments: 47-year-old male with no significant past medical history presents to the emergency department with a chief complaint of right shoulder pain. Patient reports he's had this right shoulder pain that is constant and at rest or 3 months. He is complaining of accompanying symptoms of numbness and tingling in his right thumb comes and goes. He denies trauma or injury. He has not taken anything for his symptoms. 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 Denies dizziness, lightheadedness, chest pain, shortness of breath, cough, nausea, vomiting - Related Data Home Medications Medication Instructions Recorded Confirmed Omeprazole Magnesium [PriLOSEC OTC] 20 mg PO QAM 09/05/19 09/06/19 Previous Rx's Medication Instructions Recorded HYDROcodone/APAP 10-325MG [[place] 1 tab PO Q6HR PRN 3 Days #12 tab 09/05/19 10-325] Tamsulosin [Flomax] 0.4 mg PO DAILY #30 cap 09/05/19 Ketorolac [Toradol] 10 mg PO Q8HR #15 tab 12/15/22 Allergies Allergy/AdvReac Type Severity Reaction Status Date / Time No Known Allergies Allergy Verified 12/15/22 10:01 Review of Systems ROS Statement: Those systems with pertinent positive or pertinent negative responses have been documented in the HPI. ROS Other: All systems not noted in ROS Statement are negative. 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 EGD Past Psychological History: No Psychological Hx Reported Smoking Status: Current every day smoker Past Alcohol Use History: None Reported Past Drug Use History: Marijuana - Past Family History Father Family Medical History: Myocardial Infarction ([place]) General Exam - General Exam Comments Initial Comments: General: Alert, in no acute distress Head: atraumatic normocephalic. Eyes PERRL, EOMI intact, mucous membranes moist Respiratory: Lungs clear to auscultation bilaterally Cardiovascular: Heart rate regular rate and rhythm Abdominal: Soft without guarding or rebound Extremities: Normal inspection with full range of motion and normal capillary refill Neuroogic: alert and oriented 3, CN II-XII intact, able to ambulate with steady gait Skin: warm dry and intact with normal color Limitations: no limitations Course Vital Signs 12/15/22 12/15/22 09:59 11:51 Temperature 98 F 97.9 F Pulse Rate 60 64 Respiratory 18 16 Rate Blood Pressure 149/86 147/92 O2 Sat by Pulse 99 100 Oximetry Medical Decision Making - Medical Decision Making Was pt. sent in by a medical professional or institution (, PA, JAR CAPPER, urgent care, hospital, or long term...) When possible be specific @ -[No] Did you speak to anyone other than the patient for history (EMS, parent, family, police, friend...)? What history was obtained from this source @ -[No] Did you review nursing and triage notes (agree or disagree)? Why? @ -[I reviewed and agree with nursing and triage notes] Were old charts reviewed (outside hosp., previous admission, EMS record, old EKG, old radiological studies, urgent care reports/EKG's, long term records)? Report findings @ -[No old charts were reviewed] Differential Diagnosis (chest pain, altered mental status, abdominal pain women, abdominal pain men, vaginal bleeding, weakness, fever, dyspnea, syncope, headache, dizziness, GI bleed, back pain, seizure, CVA, palpatations, mental health, musculoskeletal)? @ -[not applicable] EKG interpreted by me (3pts min.). @ -[As above] X-rays interpreted by me (1pt min.). @ -Cervical spine x-ray reveals no fracture or dislocation however there is mild degenerative disc changes at the cervical spine CT interpreted by me (1pt min.). @ -[None done] U/S interpreted by me (1pt. min.). @ -[None done] What testing was considered but not performed or refused? (CT, X-rays, U/S, labs)? Why? @ -[None] What meds were considered but not given or refused? Why? @ -[None] Did you discuss the management of the patient with other professionals (professionals i.e. , PA, JAR CAPPER, lab, RT, psych nurse, social media content specialist, segmental paver installer, teacher, personal banking officer, nurse case management)? Give summary @ -[No] Was smoking cessation discussed for >3mins.? @ -[No] Was critical care preformed (if so, how long)? @ -[No] Were there social determinants of health that impacted care today? How? (Homelessness, low income, unemployed, alcoholism, drug addiction, transportation, low edu. Level, literacy, decrease access to med. care, care home, rehab)? @ -[No] Was there de-escalation of care discussed even if they declined (Discuss DNR or withdrawal of care, Hospice)? DNR status @ -[No] What co-morbidities impacted this encounter? (DM, HTN, Smoking, COPD, CAD, Cancer, CVA, ARF, Chemo, Hep., AIDS, mental health diagnosis, sleep apnea, morbid obesity)? @ -[None] Was patient admitted / discharged? Hospital course, mention meds given and route, prescriptions, significant lab abnormalities, going to OR and other pertinent info. @ -[Discharged. This is a 46-year-old male who presents the emergency department with right arm pain. Patient had a thorough history and physical exam performed in the ED. Physical exam essentially unremarkable. Heart rate regular rate and rhythm, lungs are to auscultation bilaterally, abdomen soft non-tender. Patient had lab work and imaging performed which were essentially unremarkable. I discussed the results in detail with the patient verbalized understanding and all questions were addressed. Return precautions were discussed at length. Patient discharged in stable condition. Case discussed with Dr. [facility] who agrees with plan of care Undiagnosed new problem with uncertain prognosis? @ -[No] Drug Therapy requiring intensive monitoring for toxicity (Heparin, Nitro, Insulin, Cardizem)? @ -[No] Were any procedures done? @ -[No] Diagnosis/symptom? @ -neck pain - R arm Numbness Acute, or Chronic, or Acute on Chronic? @ -Acute Uncomplicated (without systemic symptoms) or Complicated (systemic symptoms)? @ -Uncomplicated Side effects of treatment? @ -[No] Exacerbation, Progression, or Severe Exacerbation? @ -[No] Poses a threat to life or bodily function? How? (Chest pain, [place], [place], pneumonia, PE, COPD, DKA, ARF, appy, cholecystitis, CVA, Diverticulitis, Homicidal, Suicidal, threat to staff... and all critical care pts) @ -Low likelihood Disposition Clinical Impression: Neck pain, Shoulder pain Disposition: HOME SELF-CARE Condition: Stable Additional Instructions: Return to the nearest emergency department symptoms worsen or persist Prescriptions: Ketorolac [Toradol] 10 mg PO Q8HR #15 tab Is patient prescribed a controlled substance at d/c from ED?: No Referrals: Steffi Villanueva DO [Doctor of Osteopathic Medicine] - 1-2 days Francisco Lemons DO [Primary Care Provider] - 1-2 days Time of Disposition: 11:31
--- NOTE | 2022-12-15 11:02 | XR ---
EXAMINATION TYPE: XR cervical spine comp DATE OF EXAM: 12/15/2022 10:51 AM INDICATION: Patient age:Male; 47 years old; Reason for study: neck pain/r shoulder pain; COMPARISON: None TECHNIQUE: The cervical spine was imaged in frontal, lateral, odontoid and bilateral oblique. FINDINGS: The osseous structures show normal alignment without evidence of an acute fracture. There are osteoph ytes noted throughout the cervical spine on the anterior and lateral aspects of the vertebral bodies worse at C5-C6. The intervertebral disk spaces are narrowed at multiple levels. Pedicles are intact. Soft tissues are within normal limits. The odontoid appears intact. At least mild C5-6 and C6-C7 oliver ral foraminal stenosis IMPRESSION: 1. No fracture or dislocation. 2. Mild degenerative disc disease changes of the cervical spine worse at C5-C6
[2022-12-15] MEDS ORDERED: ACET/COD 300 MG/30 MG STARTER PACK 6 TAB BTL PO STA (11:32)
[2022-12-15 11:52] VITALS: BP 147/92; PULSE 64; RESP 16; TEMP 97.9
== END 2022-12-15 11:52 | disposition home or self-care (01) ==
LOC: EC 09:41
DX: M50.322 Other cervical disc degeneration at C5-C6 level (principal); M25.511 Pain in right shoulder; K21.9 Gastro-esophageal reflux disease without esophagitis; F17.200 Nicotine dependence, unspecified, uncomplicated; F12.90 Cannabis use, unspecified, uncomplicated; Z79.899 Other long term (current) drug therapy
CPT/HCPCS: 72050; 99283; 96372; J1885